=== PATIENT | female | born 2000 | race Two or more races ===

== ENCOUNTER 2025-04-17 08:11 | Emergency (ER) | payer OTHER ==
[~2025-04-17] VITALS: Ht 154.9 cm; Wt 54.4 kg
[2025-04-17 08:49] VITALS: BP 118/68; O2SAT 100
[2025-04-17 10:42] LABS: BASO % 0.6 % (0.1-1.2); EOS # 0.06 (0.04-0.54); EOS % 0.9 % (0.7-7.0); LYMPH # 1.86 (1.18-3.74); LYMPH % 27.8 % (19.3-53.1); MEAN PLATELET VOLUME 9.70 fl (9.4-12.4); MONO # 0.45 (0.24-0.82); MONO % 6.7 % (4.7-12.5); NEUT # 4.27 (1.56-6.13); NEUT % 63.7 % (34.0-71.1); RED CELL DISTRIBUTION WIDTH 11.9 % (11.6-14.4)
[2025-04-17 11:08] LABS: BUN CREA RATIO 14.0 (7.0-25.0); CREATININE SERUM 0.65 mg/dL (0.55-1.02); GFR 111.98; GLUCOSE FASTING 88.0 mg/dL (65-100); OSMOLALITY SERUM 277.0 MOSM/KG (275-295)
[2025-04-17 11:12] LABS: INR 1.03
[2025-04-17] MEDS ORDERED: ATARAX25 MG PO (12:40)
== END 2025-04-17 13:04 | disposition home or self-care (01) ==
LOC: ER 08:12
PROVIDERS: General Practice
DX: R00.2 Palpitations (principal); F41.8 Other specified anxiety disorders; Z91.018 Allergy to other foods